=== PATIENT | male | born 1965 | race Caucasian/White ===

== ENCOUNTER 2016-06-01 11:24 | Observation (INO) ==
[~2016-06-01 11:24] MED LIST: mitoMYcin 5 MG VIAL IR SCH
[2016-06-01] MEDS ORDERED: Levofloxacin 500 MG/100 ML 500 MG/100 ML BAG IVPB ONE (11:39)
[2016-06-01] MEDS ORDERED: Lidocaine -MPF 1% 2 ML VIAL ID ONE (11:39)
[2016-06-01] MEDS ORDERED: Ringers Solution, Lactated 1,000 ML IVC SCH (11:45)
--- NOTE | 2016-06-01 11:47 | Anesthesia Evaluation PreOp ---
Date of Encounter: 06/01/16 Time of Encounter: 11:45 - Past History Planned Operation: TURB Cardiac History: HTN, Hyperlipidemia Pulmonary History: Smoker (1ppd x28 years) MANAGER MACHINE History: Denies Any Significant HX Other Medical History: Diabetes Type II, Other (Vit D Def.) Anesthesia History: No Prior Anesthetic Complications Alcohol Use: none Drug use: none Medications and Allergies Amoxicillin 875 mg PO BID #20 tablet 12/25/14 [Rx] Fluticasone Propionate Nasal [Flonase] 2 spray NS DAILY 7 Days 12/25/14 [Rx] Glimepiride 12/25/14 [History] GuaiFENesin ER [Mucinex] 600 mg PO BID PRN 3 Days 12/25/14 [Rx] Hydrochlorothiazide 12/25/14 [History] Lantus Solostar 12/25/14 [History] Metformin 12/25/14 [History] Metoprolol Succinate/Hctz 12/25/14 [History] Allergies No Known Allergies Allergy (Verified 12/25/14 12:21) - Meds/Allergy Pre-op Review Medications Reviewed: Yes Allergies Reviewed: Yes Beta Blockers on Current Med List: Yes If Beta Blockers taken, Date/Time (Last Dose taken): 22:30 05/31/2016 Anesthesia Results - Labs Laboratory Tests 05/28/16 05/28/16 08:53 08:56 WBC 8.1 Hgb 15.9 Hct 46.4 Plt Count 239 Sodium 139 Potassium 3.5 Chloride 102 Carbon Dioxide 25 BUN 32 H Creatinine 0.91 - Imaging EKG: image reviewed (SR, Mod. IVCD) Anesthesia Exam O2 Sat Height 1.93 m Height 1.93 m Weight 136.985 kg Weight 136.985 kg O2 Sat by Pulse Oximetry 96 Vital Signs Temp Pulse Resp BP Pulse Ox 98.2 F 91 18 134/91 96 06/01/16 11:42 06/01/16 11:42 06/01/16 11:42 06/01/16 11:42 06/01/16 11:42 Height: 6'4'' Weight: 302# NPO (# of Hours): > 8 hrs Pain Scale: 0 Pain Scale Used: Numeric (1 - 10) - HEENT Pupil (Motor): Pupils equal, EOMI Mallampati: II Teeth: Normal (High arched palate) Oral Opening: Greater than 3 - MANAGER MACHINE LOC: Oriented MANAGER MACHINE Motor: Normal RUE, Normal LUE, Normal RLE, Normal LLE, Normal Face MANAGER MACHINE Sensory: Normal: RUE, LUE, RLE, LLE, Face - Cardiac Rhythm: Regular Murmur: None JVD: No Carotid Bruit: No - Pulmonary Breath Sounds: bilateral Clear Respiratory Effort: Symmetrical Anesthesia Assess/Plan ASA Score: 3 Modified Valerie Scale for Level of Consciousness: Cooperative, oriented, and tranquil Anesthetic Plan: General Autologous Blood: Yes Monitoring Plan: Standard Monitors Recovery Plan: PACU
[2016-06-01] MEDS ORDERED: Albuterol 2.5 MG/3 ML NEBULIZER ONE (11:54)
[2016-06-01] MEDS ORDERED: Albuterol 2.5 MG/3 ML NEBULIZER IH ONE (11:56)
[2016-06-01] MEDS ORDERED: Ondansetron 4 MG/2 ML VIAL ONE ×3 (14:03→16:30)
[2016-06-01] MEDS ORDERED: *HR* Succinylcholine 200 MG/10 ML VIAL IVP ONE ×2 (14:03→15:09)
[2016-06-01] MEDS ORDERED: Dexamethasone 4 MG/ML VIAL ONE ×2 (14:03→15:09)
[2016-06-01] MEDS ORDERED: *HR* FentaNYL (PF) 100 MCG/2 ML VIAL ONE ×3 (14:03→15:53)
[2016-06-01] MEDS ORDERED: *HR* Propofol 200 MG/20 ML VIAL IVP ONE ×3 (14:04→16:00)
--- NOTE | 2016-06-01 15:19 | History & Physical Report ---
Date of Encounter: 06/01/16 Time of Encounter: 15:19 24 Hour HP Update - Instructions Instructions: If the History and Physical is less than 30 days old and was completed prior to A.M. admission and or procedure and has NOT been updated on calendar day of procedure please complete this update prior to performing procedure. - Update Patient reports changes in Medical Condition: No Changes in assessment/condition: No Changes in Medication: No Preop tests/diagnostics Reviewed: Yes Surgery Remains Indicated: Yes Consent for Planned Operative Procedure(s) Verified: Yes - Pre-Operative Checklist Preoperative Checklist Indicated: Yes Prophylactic Antibiotic Ordered: Yes Home Medications Include Beta Susan: No Is VTE Prophylaxis Indicated?: Yes
[2016-06-01] MEDS ORDERED: *HR* Midazolam HCl 2 MG/2 ML VIAL ONE (15:56)
[2016-06-01] MEDS ORDERED: *HR* HYDROmorphone 2 MG/ML SYRINGE ONE (16:12)
[2016-06-01] MEDS ORDERED: Neostigmine Methylsulfate 3 MG/3 ML SYRINGE ONE (16:30)
[2016-06-01] MEDS ORDERED: Ondansetron 4 MG/2 ML VIAL IVP ONE (16:33)
[2016-06-01] MEDS ORDERED: *HR* Morphine 2 MG/ML SYRINGE IVP PRN (16:33)
--- NOTE | 2016-06-01 16:51 | Operative Note ---
Date of procedure: 06/01/16 Pre-op diagnosis: bladder tumor, medium Post-op diagnosis: same Procedure: Transurethral resection of bladder tumor, medium. Implants: 16 Belgian Vivas catheter. Complications: none. Anesthesia: ANGIE Surgeon: Timbo Hallman Estimated blood loss (cc): 2 Specimen: bladder tumor, deep bladder tumor Condition: stable Disposition: PACU Procedure in Detail: Indications: Mr. Garcia is a 50-year-old gentleman who has a history of hematuria. He had a CT which showed a 3 cm bladder tumor located along the left wall of the bladder. He elected to undergo a transurethral resection of bladder tumor. He was informed of the risks of the procedure including but not limited to bleeding, infection, injury to other structures, need for further procedures, and the risk of anesthesia. He is willing to proceed. Procedure: After informed consent was obtained Mr. Nixon was brought back to the operating room and placed in the supine position. A timeout was performed. General anesthesia was then administered and an endotracheal tube was placed. He was then placed in the lithotomy position. His genitalia were prepped and draped in the usual sterile fashion. The penile urethra was dilated up to 28 Belgian using the Dionne sounds. The resector sheath was inserted using the visual obturator. 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 Once in the bladder the visual obturator was removed and I inserted the resecting element. The tumor was located along the left lateral wall. It was resected away. The large volume of tissue was irrigated out. I then performed deep biopsies at the base of the tumor. The tumor was approximately 3 cm in diameter. Once adequate resection was performed I confirmed hemostasis with electrocautery. Any residual resection chips were irrigated out and sent to pathology. The bladder was drained. A 16 Belgian catheter was placed and 10 mL was instilled into the balloon. The catheter was left to drainage. The patient was then awakened from general anesthesia and brought to the recovery room in good condition. All sponge, needle and instrument counts were correct.
--- NOTE | 2016-06-01 16:53 | Discharge Summary ---
Outpatient Proc Discharge Plan - Plan Additional Instructions: 1. No heavy lifting greater than 20 pounds 2 weeks. 2. Okay for tub baths. 3. May shower tomorrow. 4. He should follow up in 2 weeks for postoperative check. 5. He should return for any fevers, chills, nausea, vomiting, or worsening hematuria. Prescriptions: Docusate [Colace] 100 mg PO BID #60 capsule HYDROcodone/Acet 5/325 mg [Murdock 5-325 mg] 1 tab PO Q4H PRN #15 tab PRN Reason: Pain Phenazopyridine HCl [Pyridium] 200 mg PO TIDAC #12 tab Home Medications: Cyclobenzaprine [Flexeril] 10 mg PO TID PRN 06/01/16 [History] Dapagliflozin Propanediol [Farxiga] 10 mg PO HS 06/01/16 [History] Docusate [Colace] 100 mg PO BID #60 capsule 06/01/16 [Rx] FLUoxetine HCl [Prozac] 40 mg PO HS 06/01/16 [History] Glimepiride [Amaryl] 4 mg PO DAILY 06/01/16 [History] HYDROcodone/Acet 5/325 mg [Murdock 5-325 mg] 1 tab PO Q4H PRN #15 tab 06/01/16 [Rx ] Insulin Glargine,Hum.rec.anlog [Lantus Solostar] 60 unit SQ QAM 06/01/16 [ History] Liraglutide [Victoza 2-Sterling] 0.6 mg SQ DAILY 06/01/16 [History] Metformin HCl [Metformin HCl ER] 1,000 mg PO DAILY 06/01/16 [History] Metoprolol XL (24 HR) Succ [Toprol Xl] 25 mg PO HS 06/01/16 [History] Phenazopyridine HCl [Pyridium] 200 mg PO TIDAC #12 tab 06/01/16 [Rx] Valsartan/Hydrochlorothiazide [Diovan Hct 320-25 mg Tablet] 1 each PO HS [History]
--- NOTE | 2016-06-01 16:56 | Event Note ---
Date of Encounter: 06/01/16 Time of Encounter: 16:55 In a separate visit, I reviewed the urine coming from the Vivas catheter in the recovery room. It was clear. At this point I determined that it would be safe to instill mitomycin-C. Forty mg of mitomycin-C instilled in 40 mL was placed in the catheter. The catheter was then clamped for an hour.
--- NOTE | 2016-06-01 17:58 | Anesthesia Evaluation Post Op ---
Date of Encounter: 06/01/16 Time of Encounter: 17:28 - Vital Signs Vital Signs: vss - Lungs Lungs: Clear Ascult./Percussion - Airway Airway: Non-obstructed - Cardiovascular Baseline Rhythm - Mental Status Mental Status: Alert & Oriented, Answers Appropriately - Pain Pain Scale used: Joni (Faces) - Nausea Vomiting Nausea Vomiting: Not Present - Discharge PostOp Status: Transfer Patient to floor
[2016-06-01] MEDS ORDERED: Ondansetron 4 MG/2 ML VIAL IVP PRN (18:27)
[2016-06-01] MEDS ORDERED: Naloxone 0.4 MG/ML INJ IVP PRN (18:27)
[2016-06-01] MEDS ORDERED: *HR* HYDROmorphone 2 MG/ML SYRINGE IVP PRN (18:27)
[2016-06-01] MEDS ORDERED: *HR* HYDROcodone/Acet 5/325 mg TABLET PO PRN (18:27)
[2016-06-01] MEDS ORDERED: Dextrose Gel 15 GM PO PRN ×2 (18:30)
[2016-06-01] MEDS ORDERED: D5% in Water 1,000 ML IVC PRN (18:30)
[2016-06-01] MEDS ORDERED: *HR* Dextrose 50 % in Water (Syg) 50 ML SYRINGE IVP PRN (18:30)
[2016-06-01] MEDS: Insulin LISPRO 300 UNITS/3 ML VIAL SQ SCH (18:50)
[2016-06-01] MEDS: 0.9 % Sodium Chloride 1,000 ML IVC SCH (20:30)
[2016-06-01] MEDS: (Dapagliflozin Propanediol [Farxiga] 10 MG) PO SCH (21:10)
[2016-06-01] MEDS: hydroCHLOROthiazide 25 MG TABLET PO SCH (21:12)
[2016-06-01] MEDS: Valsartan 160 MG TABLET PO SCH (21:12)
[2016-06-01] MEDS: FLUoxetine 20 MG CAPSULE PO SCH (21:12)
[2016-06-01] MEDS: Metoprolol XL (24 HR) Succ 25 MG TAB.ER.24H PO SCH (21:13)
[2016-06-02] MEDS: 0.9 % Sodium Chloride 1,000 ML IVC SCH ×3 (04:52→21:12)
[2016-06-02] MEDS: *HR* Glimepiride 4 MG TABLET PO SCH (07:30)
[2016-06-02] MEDS: *HR* Metformin 500 MG TABLET PO SCH ×2 (07:30→17:18)
[2016-06-02] MEDS: *HR* HYDROcodone/Acet 5/325 mg TABLET PO PRN ×3 (07:33→21:16)
--- NOTE | 2016-06-02 08:15 | Urology Progress Note ---
Date of Encounter: 06/02/16 Time of Encounter: 08:14 - Assessment and Plan (1) Bladder tumor Current Visit: Yes Status: Acute Assessment and plan: will continue patient on CBI. will reassess this afternooon. if no improvement then will likely need to add patient on for fulguration. Progress Note Narrative: POD 1 from turbt. did well overnight. did not like catheter. Objective Initial Vital Signs Temp Pulse Resp BP Pulse Ox 98.2 F 91 18 134/91 96 06/01/16 11:42 06/01/16 11:42 06/01/16 11:42 06/01/16 11:42 06/01/16 11:42 - General physical appearance Present: well developed - Abdomen Present: soft - Genitourinary Present: other (urine still quite pink in tubing) - VTE Documentation of Mechanical Device: Intermittent pneumatic compression device Consult Discharge Plan - Plan Additional Instructions: 1. No heavy lifting greater than 20 pounds 2 weeks. 2. Okay for tub baths. 3. May shower tomorrow. 4. He should follow up in 2 weeks for postoperative check. 5. He should return for any fevers, chills, nausea, vomiting, or worsening hematuria. Referrals: Jhoan Dewey MD [Primary Care Provider] - Timbo Hallman MD [Partnered Physician] -
[2016-06-02] MEDS: Insulin LISPRO 300 UNITS/3 ML VIAL SQ SCH ×3 (09:35→17:19)
[2016-06-02] MEDS: (Liraglutide [Victoza 2-Pak] 0.6 MG) SQ SCH (09:36)
[2016-06-02] MEDS: Insulin DETEMIR 100 UNIT/ML X5UNITS SQ SCH (09:38)
[2016-06-02] MEDS: Valsartan 160 MG TABLET PO SCH (21:11)
[2016-06-02] MEDS: hydroCHLOROthiazide 25 MG TABLET PO SCH (21:12)
[2016-06-02] MEDS: (Dapagliflozin Propanediol [Farxiga] 10 MG) PO SCH (21:12)
[2016-06-02] MEDS: FLUoxetine 20 MG CAPSULE PO SCH (21:12)
[2016-06-02] MEDS: Metoprolol XL (24 HR) Succ 25 MG TAB.ER.24H PO SCH (21:12)
[2016-06-03] MEDS: 0.9 % Sodium Chloride 1,000 ML IVC SCH (05:26)
[2016-06-03 07:56] VITALS: BP 147/90
--- NOTE | 2016-06-03 08:13 | Discharge Summary ---
Date of Encounter: 06/03/16 Time of Encounter: 08:11 - Discharge Diagnosis (1) Bladder tumor Priority: Primary Status: Acute - Discharge Medications Prescriptions: HYDROcodone/Acet 5/325 mg [Graham 5-325 mg] 1 tab PO Q4HR PRN #15 tablet PRN Reason: Mild Pain Home Medications: Cyclobenzaprine [Flexeril] 10 mg PO TID PRN 06/01/16 [History] Dapagliflozin Propanediol [Farxiga] 10 mg PO HS 06/01/16 [History] Docusate [Colace] 100 mg PO BID #60 capsule 06/01/16 [Rx] FLUoxetine HCl [Prozac] 40 mg PO HS 06/01/16 [History] Glimepiride [Amaryl] 4 mg PO DAILY 06/01/16 [History] HYDROcodone/Acet 5/325 mg [Graham 5-325 mg] 1 tab PO Q4H PRN #15 tab 06/01/16 [Rx ] Insulin Glargine,Hum.rec.anlog [Lantus Solostar] 60 unit SQ QAM 06/01/16 [ History] Liraglutide [Victoza 2-Sterling] 0.6 mg SQ DAILY 06/01/16 [History] Metformin HCl [Metformin HCl ER] 1,000 mg PO DAILY 06/01/16 [History] Metoprolol XL (24 HR) Succ [Toprol Xl] 25 mg PO HS 06/01/16 [History] Phenazopyridine HCl [Pyridium] 200 mg PO TIDAC #12 tab 06/01/16 [Rx] Valsartan/Hydrochlorothiazide [Diovan Hct 320-25 mg Tablet] 1 each PO HS [History] HYDROcodone/Acet 5/325 mg [Graham 5-325 mg] 1 tab PO Q4HR PRN #15 tablet [Rx] Allergies/Adverse Reactions: Allergies No Known Allergies Allergy (Verified 06/01/16 12:13) Procedures and tests throughout hospitalization: turbt on 06/01/16 Labs on day of discharge: Labs from last 24 hours 06/02/16 06/02/16 06/02/16 20:06 17:12 12:36 POC Glucose 184 H 135 H 136 H 06/02/16 08:26 POC Glucose 107 H Date of admission: 06/01/16 18:27 Primary care physician: Jhoan Dewey MD Discharging clinician: Tomas Ayala Anticipated date of discharge: 06/03/16 - Patient Status Disposition: Home, Self-Care Condition: Good Overall status at discharge: patient is progressing back to baseline - Discharge Instructions Follow Up With: Jhoan Dewey MD [Primary Care Provider] - Timbo Hallman MD [Partnered Physician] - (office will call tomorrow with appointment ) Additional Instructions: 1. No heavy lifting greater than 20 pounds 2 weeks. 2. Okay for tub baths. 3. May shower tomorrow. 4. He should follow up in 2 weeks for postoperative check. 5. He should return for any fevers, chills, nausea, vomiting, or worsening hematuria. - Diet and Activity Activity: increase activity as tolerated Diet: advance to your usual diet - Hospital Course Hospital course: Mr. Garcia is a 50 year old male sp turbt. patient had some bleeding afterwards and was kept for observation for CBI. patients urine on POD 1 was still quite pink. This decreased to clear and morning of Dc was clear off irrigation. Time spent discussing smoking cessation with patient: 3 to 10 minutes - Time Spent with Patient Total time spent providing and/or coordinating discharge services: Less than 30 minutes Exam Initial Vital Signs Temp Pulse Resp BP Pulse Ox 98.2 F 91 18 134/91 96 06/01/16 11:42 06/01/16 11:42 06/01/16 11:42 06/01/16 11:42 06/01/16 11:42 - General physical appearance Present: well developed - Respiratory Present: normal respiratory effort - Cardiovascular Cardiovascular exam IM: RRR - Abdomen Abdomen: Present: soft - Genitourinary other (urine clear in tubing) - VTE Documentation of Mechanical Device: Intermittent pneumatic compression device
[2016-06-03] MEDS: Insulin LISPRO 300 UNITS/3 ML VIAL SQ SCH (08:23)
[2016-06-03] MEDS: (Liraglutide [Victoza 2-Pak] 0.6 MG) SQ SCH (09:33)
[2016-06-03] MEDS: *HR* Metformin 500 MG TABLET PO SCH (09:37)
[2016-06-03] MEDS: *HR* HYDROcodone/Acet 5/325 mg TABLET PO PRN (09:37)
[2016-06-03] MEDS: *HR* Glimepiride 4 MG TABLET PO SCH (09:37)
[2016-06-03] MEDS: Insulin DETEMIR 100 UNIT/ML X5UNITS SQ SCH (09:38)
== END 2016-06-03 10:50 | disposition home or self-care (01) ==
LOC: SAMDAY 11:24 → 3ANU 11:24
PROVIDERS: ADMIT Urology; ATTEND Urology